=== PATIENT | female | born 1985 | race Two or more races ===

== ENCOUNTER 2025-03-17 22:23 | Emergency (ER) | payer BC, SELFPAY ==
[2025-03-17 22:24] VITALS: BMI 34.0
[2025-03-17 22:38] VITALS: BP 110/75; PULSE 20; RESP 20; TEMP 37.1; O2SAT 97
--- NOTE | 2025-03-17 22:43 | EDNOTE_ITS ---
Upper Extremity Injury RME/HPI General Chief Complaint: Extremity Injury, Upper Stated Complaint: L ARM PAIN Time Seen by Provider: 03/17/25 22:26 Source: patient, RN notes reviewed and old records reviewed Arrival date/time: 03/17/25 22:23 Mode of arrival: ambulatory Limitations: no limitations RME / HPI RME / HPI narrative: 39yof presents to ED for 2-day history of generalized LUE pain. No preceding injury or fall. Reports increased pain with ROM. hx of DVT RUE in 2020 from OCP. Patient denies current ocp use, recent surgery or recent long travel. No arm swe lling, joint swelling or numbness/tingling reported. No medications or treatments since onset. Related Data Home Medications ?Medication ?Instructions ?Recorded ?Confirmed cetirizine 10 mg tablet 10 mg PO QDAY 09/28/2109/28 Previous Rx's ?Medication ?Instructions ?Recorded acetaminophen 325 mg capsule 650 mg (2 x 325 mg) PO QI D PRN 11/24/20 (Tylenol) fever or pain #30 caps Allergies Allergy/AdvReac Type Severity Reaction Status Date / Time avocado Allergy Severe Swelling Verified 03/17/25 22:29 of Lip/Tongue/Throat celery Allergy Severe Swelling Verified 03/17/25 22:29 of Lip/Tongue/Throat chicken derived Allergy Severe Swelling Verified 03/17/25 22:29 of Lip/Tongue/Throat grass pollen Allergy Severe Hives Verified 03/17/25 22:29 iodine Allergy Severe Rash Verified 03/17/25 22:29 pear Allergy Severe Swelling Verified 03/17/25 22:29 of Lip/Tongue/Throat weed pollen Allergy Severe Hives Verified 03/17/25 22:29 RASPBERRIES Allergy Severe SWELLING Uncoded 03/17/25 22:29 IN THROAT RASPBERRY FLAVOR, ARTIFICIAL Allergy Severe Anaphylaxis Uncoded 03/17/25 22:29 Review of Systems Review of Systems Systems Reviewed: All systems reviewed, normal except as documented ENT Ears, Nose, Mouth, and Throat: Denies neck pain Musculoskeletal Musculoskeletal: Denies arthralgias, Denies joint swelling, Denies limited range of motion, Denies neck pain, Denies numbness and Denies tingling Comments: Reports extremity pain Neurologic Neurologic: Denies numbness and Denies tingling Past Medical History Past Medical History GENITOURINARY: Positive Kidney Stones REPRODUCTIVE: Positive Previous Pregnancies MUSCULOSKELETAL: Positive Carpal Tunnel Syndrome PSYCHO/SOCIAL: Positive Anxiety Surgical History SURGICAL: Positive Tympanostomy Tube Social History SMOKING STATUS: Never smoker SUBSTANCE USE: does not use ALCOHOL: Never ED Exam General Limitations: Present no limitations General appearance: Present alert and in no apparent distress Head Head exam: Present atraumatic and normocephalic Eye Eye exam: Present normal appearance, PERRL and EOMI ENT ENT exam: Present normal exam and mucous membranes moist Neck Neck exam: Present normal inspection and full ROM Chest Chest inspection: Present normal inspection and symmetric chest wall rise Respiratory Respiratory exam: Present normal lung sounds bilaterally; Absent respiratory distress Cardiovascular Cardiovascular exam: Present regular rate and normal rhythm Extremities Exam Extremities exam: Present normal inspection, full ROM, normal capillary refill and other (2+ radial pulses b/l, sensation equal and intact. No UE swelling); Absent tenderness or joint swelling Neurological Exam Neurological exam: Present alert and oriented X3 Psychiatric Psychiatric exam: Present normal affect and normal mood Skin Skin exam: Present warm, dry, intact and normal color Course Quality Measures none Orders Category Date Time Status US venous doppler UE LT Stat Exams 03/17/25 23:20 Completed BMP [Basic Metabolic Panel] Stat Lab 03/17/25 23:03 Completed CBC Stat Lab 03/17/25 23:03 Completed CK [Creatine Kinase] Stat Lab 03/17/25 23:03 Completed HCG,Qualitative Serum Stat Lab 03/17/25 23:03 Completed CYCLObenzaPRINE [Flexeril] Med 03/17/25 22:42 Discontinued 5 mg PO X1 ONE HYDROcodone*/APAP 5/325 [[place] 5/325] Med 03/17/25 22:42 Discontinued 1 tab PO X1 ONE Ketorolac Inj [Toradol Inj] Med 03/17/25 22:42 Discontinued 30 mg IM X1 ONE Vital Signs Vital signs: Vital Signs Temperature 98.7 F 03/17/25 22:38 Pulse Rate 20 L 03/17/25 22:38 Respiratory Rate 20 03/17/25 22:38 Blood Pressure 110/75 03/17/25 22:38 Pulse Oximetry (%) 97 03/17/25 22:38 Oxygen Delivery Method Room Air 03/17/25 22:38 Extremity Injury MDM Narrative MDM Narrative:: 39yof presents to ED for 2-day history of generalized LUE pain. No preceding injury or fall. Reports increased pain with ROM. hx of DVT RUE in 2020 from OCP. Patient denies current ocp use, recent surgery or recent long travel. No arm swelling, joint swelling or numbness/tingling reported. No medications or treatments since onset. No evidence of DVT. Encouraged rest, motrin/tylenol, ice/heat application prn pain. Stable for dc, RTED precautions given. Patient data External records reviewed:: [facility] previous records (07/04/22 ED visit for migraine) Clinical information provided by:: patient Social determinants that could affect healthcare access:: none Patient has the following chronic illnesses:: DVT How is presenting disease/condition affected by chronic disease/condition?: uneffected by Evaluation data The following diagnostics were reviewed and interpreted by me:: lab results and radiology exam(s) Lab and/or radiology exams considered but not ordered:: none Interpretation Summary: No leukocytosis No anemia No evidence of rhabdo K wnl 3.9 Medications / Prescriptions Medications or Prescriptions considered but not ordered:: no antibiotics recommended at this time Medication administrations:: Medication Administration History Discontinued Medications Hydrocodone Bitart/Acetaminophen (Hydrocodone/Apap 5/325 Tablet) 1 tab PO X1 ONE Stop: 03/17/25 22:43 Last Admin: 03/17/25 23:50 Dose: Not Given Documented By: BD Non-Admin Reason: Patient Refused Cyclobenzaprine HCl (Cyclobenzaprine 5 Mg Tablet) 5 mg PO X1 ONE Stop: 03/17/25 22:43 Last Admin: 03/17/25 23:50 Dose: Not Given Documented By: BD Non-Admin Reason: Patient Refused Ketorolac Tromethamine (Ketorolac Inj 60 Mg/2 Ml Vial) 30 mg IM X1 ONE Stop: 03/17/25 22:43 Last Admin: 03/17/25 23:50 Dose: Not Given Documented By: BD Non-Admin Reason: Patient Refused above medications administered in ED Consultations Consultation(s) initiated? (list below): No Diagnosis Upper Extremity Injury Differential Diagnosis: other (strain, sprain, contusion, msk pain, tendonitis, myalgia, cervical radiculopathy, DVT) Most likely diagnosis given after review of the tests above:: arm pain Admission Indicated Admission indicated?: not indicated Admission Request Was there a request for admission?: No Disposition Plan Disposition Plan: Discharge Discharge Attestation Discharge Attestation: The patient and all family members were given an opportunity to ask questions and understood the discharge instructions. Discharge instructions specifically effects, indications for sooner follow up or return to the emergency department, and the expected course of current diagnosis. Patient condition: Stable Discharge Plan Plan Patient Disposition: HOME (Self Care) Patient condition on transfer: Stable Prescriptions/Referrals Prescriptions/Med Rec: No Action acetaminophen [Tylenol] 325 mg capsule 650 mg PO QID PRN (Reason: fever or pain) Qty: 30 0RF cetirizine 10 mg Tablet 10 mg PO QDAY Referrals: Silvana Jain PA-C [Primary Care Provider] - In 1 week Problem List Clinical Impression: Left arm pain Patient/Caregiver Discharge Instructions Education Materials: ED Myalgias Print Language: Portuguese Stand Alone Forms: Andressa Award Info., Patient Portal Info Letter PA/LAURA Supervising Physician PA/LAURA Supervising Physician: Lily
--- NOTE | 2025-03-17 23:20 | XR_ITS ---
Examination: Duplex scan of the upper extremity, unilateral left Date and time of exam: March 17, 2025 11:28 PM INDICATIONS: Left arm swelling and pain beginning 3 days ago Technique: Duplex scan of the extremity veins using B-mode/grayscale imaging and Doppler spectral analysis and color flow Attention is directed to internal echogenicity, compression and augmentation involving these veins, color flow assessment, spectral analysis Findings: Major deep venous structures in the extremity demonstrate normal course and caliber. There is no evidence of deep vein thrombosis. Normal color flow and spectral analysis Impression: Negative for DVT..
[2025-03-17 23:28] LABS: Basophils # (Auto) 0.1 Thou/mm3 (0.0-0.2); Basophils % (Auto) 1 % (0-2.5); Eosinophils # (Auto) 0.1 Thou/mm3 (0.0-0.5); Eosinophils % (Auto) 1 % (0-10); Hematocrit 40.1 % (36.0-46.0); Hemoglobin 13.4 g/dL (12.0-16.0); Immature Granulocytes Auto 0.04 Thou/mm3 (0.00-0.00); Lymphocytes # (Auto) 2.7 Thou/mm3 (1.0-4.8); Lymphocytes % (Auto) 27 % (10-50); Mean Corpuscular HGB Conc 33.4 g/dl (31.0-37.0); Mean Corpuscular Hemoglobin 28.2 pg (25.0-35.0); Mean Corpuscular Volume 84 fL (80-100); Monocytes # (Auto) 0.7 Thou/mm3 (0.0-0.8); Monocytes % (Auto) 7 % (0-12); Neutrophils # (Auto) 6.4 Thou/mm3 (1.8-7.7); Neutrophils % (Auto) 65 % (37-80); Nucleated Red Blood Cell # 0.00 Thou/mm3 (0.00-0.00); Nucleated Red Blood Cell % 0 /100 WBC (0); Platelet Count 278 Thou/mm3 (140-440); RDW Standard Deviation 39.8 fL (36.4-46.3); Red Blood Count 4.75 Miln/mm3 (4.00-5.20); White Blood Count 9.9 Thou/mm3 (3.6-11.0)
[2025-03-17 23:45] LABS: Anion Gap 8 (7-16); BUN/Creatinine Ratio 11 Ratio (12-20); Blood Urea Nitrogen 11 mg/dL (9-23); Calcium 9.8 mg/dL (8.3-10.6); Carbon Dioxide 28.0 mMol/L (20.0-31.0); Chloride 105 mMol/L (98-107); Creatine Kinase 122 U/L (34-171); Creatinine (Component) 1.0 mg/dL (0.6-1.3); Estimated Creatinine Clearance 73.1 mL/min (>60); Glucose 97 mg/dL (74-106); Osmolality,Calculated 280 (275-295); Potassium 3.9 mMol/L (3.4-5.1); Sodium 141 mMol/L (136-145); eGFR > 60 See Note
[2025-03-17 23:51] LABS: HCG,Qualitative Serum Negative
--- NOTE | 2025-03-18 01:51 | PRELIM_ITS ---
Left upper extremity venous Doppler ultrasound. March 17, 2025 2328 hours Clinical history: Left arm pain x2 days, history of deep vein thrombosis right upper quadrant . No prior study is available for comparison. Findings: The internal jugular vein is patent and compressible. The subclavian vein is patent. The axillary and brachial veins are patent and demonstrate good compression. The cephalic and basilic veins are patent and demonstrate good compression. The radial and ulnar veins are patent and compressible. Impression: No evidence of venous thrombosis in the left upper extremity. Report Electronically Signed By: Marshall Delgadillo 03/18/2025 1:50:40 AM [EST]
== END 2025-03-18 02:00 | disposition home or self-care (01) ==
PROVIDERS: Physician Assistant; Emergency Provider Emergency Medicine; PCP Physician Assistant
DX: M79.602 Pain in left arm (principal); Z86.718 Personal history of other venous thrombosis and embolism
CPT/HCPCS: 36415; 80048; 82550; 84703; 85025; 93971; 99283